=== PATIENT | female | born 1945 | race Caucasian/White ===

== ENCOUNTER → 2016-11-04 | Outpatient (CLI) | payer MEDICARE, BC ==
[~2016-11-04] MED LIST: ASPIRIN EC81 MG PO; AUGMENTIN XR 101 TER PO; CALCIUM 600-D 61 TAB PO; CEFDINIR300 MG PO; CLINORIL200 MG PO; CO-Q10 300 MG-31 SGL PO; DIOVAN320 MG PO; HYDROCODONE PO; MULTI VITAMINS1 TA1 PO; PRAVASTATIN 20M20 MG PO; PREMPRO 0.3 MG-1 TAB PO; ULTRAM50 MG PO; VENTOLIN H0.09 MG/AC IH; VITAMIN C500 M1 PO; VITAMIN E 400400 IU PO; [UNRECOGNIZED DRUG - OTHER] PO
== END ==
LOC: RAD 10-14 11:00
DX: Z78.0 Asymptomatic menopausal state (principal); Z92.89 Personal history of other medical treatment; Z13.820 Encounter for screening for osteoporosis